=== PATIENT | female | born 1990 | race Caucasian/White ===

== ENCOUNTER 2017-11-13 14:04 | Emergency (ER) | payer BC, OTHER ==
[2016-05-06 08:53] VITALS: Wt 61.2 kg
[~2017-11-13 14:04] MED LIST: DOCU240C67 PO; FERR-53 PO; IBUP600T22 PO; Lanolin TP; NITR-105 PO; ONDA4TAB PO; PREN-75 PO; PROM25SU8; [UNRECOGNIZED DRUG - CODE] PO; [UNRECOGNIZED DRUG - CODE] PO
--- NOTE | 2017-11-13 14:08 | ER Report ---
History and Physical Time Seen By MD: 14:07 (NELL AGUILAR MD) HPI/ROS CHIEF COMPLAINT: Dehydration HISTORY OF PRESENT ILLNESS: She is a 27-year-old female who is a at approximately 10-11 weeks but hasnot yet had first trimester U/S. patient has a prior history of hyperemesis with a prior . She is stating that over the past few week she's been unable to keep anything down and this has worsened over the last 24-48 hours. She denies any abdominal pain. She denies dysuria she denies any vaginal bleeding or cramping. She has been taking Zofran, Reglan and Phenergan without relief in her symptoms. Patient last tried to eat some watermelon approximately 30 minutes prior to arrival. But she wasn't able to keep that down. REVIEW OF SYSTEMS: Respiratory: No cough, no dyspnea. Cardiovascular: No chest pain, no palpitations. Gastrointestinal: Hyperemesis, no abdominal pain Musculoskeletal: No back pain. : No dysuria, no vaginal bleeding (NELL AGUILAR MD) Allergies: Coded Allergies: No Known Drug Allergies (Unverified , 11/13/17) Home Meds Active Scripts Cephalexin 500 Mg Tab (KEFLEX 500 MG TAB) 500 Mg Tablet, 500 MG PO BID, #28 TAB Prov:KRISS MARTINO V DO 11/13/17 Vit#96/Ferrous Fum/Fa ( TABLET) 1 Each Tablet, 1 EACH PO DAILY for 90 Days, TAB Prov:FLAVIA COLÓN MD 05/07/16 [Lanolin] 7 GM OINT No Conflict Check, 0 GM TP PRN Y for DISCOMFORT FOR NURSING MOTHERS, TUBE Prov:FLAVIA COLÓN MD 05/07/16 Ibuprofen (IBUPROFEN) 600 Mg Tablet, 600 MG PO Q6H Y for PAIN for 10 Days, TAB Prov:FLAVIA COLÓN MD 05/07/16 Ferrous Sulfate (FERROUS SULFATE) 325 Mg Tablet, 325 MG PO DAILY for 30 Days, TAB 2 Refills Prov:LFAVIA COLÓN MD 05/07/16 Docusate Calcium (DOCUSATE CALCIUM) 240 Mg Capsule, 240 MG PO BID for 10 Days, CAPSULE Prov:FLAVIA COLÓN MD 05/07/16 Nitrofurantoin Monohyd/M-Cryst (MACROBID 100 MG CAPSULE) 100 Mg Capsule, 100 MG PO BID, #14 CAPSULE 0 Refills Prov:DAVID BUCK MD 04/14/16 Past Medical/Surgical History History of hyperemesis (NELL AGUILAR MD) Hx Smoking: No Smoking Status: Never Smoker Exposure to Second Hand Smoke?: No Hx Substance Use Disorder: No (NELL AGUILAR MD) Constitutional Vital Sign - Last 24 Hours 11/13/17 11/13/17 11/13/17 11/13/17 14:10 14:12 14:19 14:30 Temp 98.7 Pulse 76 81 Resp 16 B/P (MAP) 123/81 123/81 (95) 113/71 (85) Pulse Ox 98 96 O2 Delivery Room Air 11/13/17 11/13/17 11/13/17 11/13/17 14:34 14:39 14:44 14:49 Pulse 78 76 81 79 Pulse Ox 97 98 98 98 11/13/17 11/13/17 11/13/17 11/13/17 14:54 14:59 15:00 15:04 Pulse 72 79 78 B/P (MAP) 107/72 (84) Pulse Ox 98 98 99 11/13/17 11/13/17 11/13/17 15:09 15:14 15:19 Pulse 76 73 80 Pulse Ox 99 98 98 Intake and Output 11/13/17 11/13/17 11/14/17 15:00 23:00 07:00 Intake Total 1000 ml Balance 1000 ml (LAURORA,KRISS V DO) Physical Exam General Appearance: The patient is alert, has no immediate need for airway protection and no signs of toxicity. Eyes: Pupils equal and round no pallor or injection. ENT, Mouth: Mucous membranes are dry with tacky saliva Respiratory: There are no retractions, lungs are clear to auscultation. Cardiovascular: Regular rate and rhythm. Gastrointestinal: Abdomen is soft and non tender, no masses, bowel sounds normal. Neurological: Awake alert oriented Skin: Warm and dry, no rashes. Musculoskeletal: Neck is supple non tender. Extremities are nontender, nonswollen and have full range of motion. (NELL AGUILAR MD) Medical Decision Making Data Points Result Diagram: 11/13/17 1433 11/13/17 1433 Laboratory Hematology Test 11/13/17 14:10 3/24/18 14:33 Urine Color Yellow Urine Clarity Cloudy Urine pH 5.0 pH (4.8-9.5) Urine Specific [place] 1.028 Urine Protein Negative mg/dL (NEGATIVE) Urine Glucose (UA) Negative mg/dL (NEGATIVE) Urine Ketones 20 mg/dL (NEGATIVE) Urine Blood Negative (NEGATIVE) Urine Nitrite Negative (NEGATIVE) Urine Bilirubin Negative (NEGATIVE) Urine Urobilinogen Negative mg/dL (0.2-1.9) Urine Leukocyte Esterase Trace (NEGATIVE) Urine RBC 2 /HPF (0-2/HPF) Urine WBC 9 /HPF (0-5/HPF) Urine Squamous Epithelial Cells Many /LPF (</=FEW) Urine Bacteria Few /HPF (NONE-FEW) Urine Mucus Few /HPF (NONE-FEW) Red Blood Count 5.11 M/uL (4.17-5.56) Mean Corpuscular Volume 82.9 fL (80.0-96.0) Mean Corpuscular Hemoglobin 28.5 pg (26.0-33.0) Mean Corpuscular Hemoglobin Concent 34.4 g/dL (32.0-36.0) Red Cell Distribution Width 13.1 % (11.5-14.5) Mean Platelet Volume 9.7 fL (7.2-11.1) Neutrophils (%) (Auto) 69.9 % (39.4-72.5) Lymphocytes (%) (Auto) 22.0 % (17.6-49.6) Monocytes (%) (Auto) 6.5 % (4.1-12.4) Eosinophils (%) (Auto) 0.6 % (0.4-6.7) Basophils (%) (Auto) 1.0 % (0.3-1.4) Nucleated RBC Relative Count (auto) 0.0 /100WBC Neutrophils # (Auto) 4.7 K/uL (2.0-7.4) Lymphocytes # (Auto) 1.5 K/uL (1.3-3.6) Monocytes # (Auto) 0.4 K/uL (0.3-1.0) Eosinophils # (Auto) 0.0 K/uL (0.0-0.5) Basophils # (Auto) 0.1 K/uL (0.0-0.1) Nucleated RBC Absolute Count (auto) 0.00 K/uL Sodium Level 139 mmol/L (137-145) Potassium Level 3.7 mmol/L (3.5-5.0) Chloride Level 105 mmol/L (98-107) Carbon Dioxide Level 20 mmol/L (22-31) Blood Urea Nitrogen 8 mg/dl (7-18) Creatinine 0.60 mg/dl (0.52-1.04) Glomerular Filtration Rate Calc > 60.0 Random Glucose 79 mg/dl (75-110) Calcium Level 9.6 mg/dl (8.4-10.2) Total Bilirubin 0.6 mg/dl (0.2-1.3) Aspartate Amino Transf (AST/SGOT) 14 U/L (0-35) Alanine Aminotransferase (ALT/SGPT) 30 U/L (0-56) Alkaline Phosphatase 38 U/L (0-126) Total Protein 7.8 gm/dl (6.3-8.2) Albumin 4.7 g/dl (3.5-5.0) Lipase 120 U/L (23-300) Chemistry Test 11/13/17 14:10 11/13/17 14:33 Urine Color Yellow Urine Clarity Cloudy Urine pH 5.0 pH (4.8-9.5) Urine Specific [place] 1.028 Urine Protein Negative mg/dL (NEGATIVE) Urine Glucose (UA) Negative mg/dL (NEGATIVE) Urine Ketones 20 mg/dL (NEGATIVE) Urine Blood Negative (NEGATIVE) Urine Nitrite Negative (NEGATIVE) Urine Bilirubin Negative (NEGATIVE) Urine Urobilinogen Negative mg/dL (0.2-1.9) Urine Leukocyte Esterase Trace (NEGATIVE) Urine RBC 2 /HPF (0-2/HPF) Urine WBC 9 /HPF (0-5/HPF) Urine Squamous Epithelial Cells Many /LPF (</=FEW) Urine Bacteria Few /HPF (NONE-FEW) Urine Mucus Few /HPF (NONE-FEW) White Blood Count 6.7 k/uL (4.5-11.0) Red Blood Count 5.11 M/uL (4.17-5.56) Hemoglobin 14.6 g/dL (12.0-16.0) Hematocrit 42.4 % (34.0-47.0) Mean Corpuscular Volume 82.9 fL (80.0-96.0) Mean Corpuscular Hemoglobin 28.5 pg (26.0-33.0) Mean Corpuscular Hemoglobin Concent 34.4 g/dL (32.0-36.0) Red Cell Distribution Width 13.1 % (11.5-14.5) Platelet Count 166 K/uL (150-450) Mean Platelet Volume 9.7 fL (7.2-11.1) Neutrophils (%) (Auto) 69.9 % (39.4-72.5) Lymphocytes (%) (Auto) 22.0 % (17.6-49.6) Monocytes (%) (Auto) 6.5 % (4.1-12.4) Eosinophils (%) (Auto) 0.6 % (0.4-6.7) Basophils (%) (Auto) 1.0 % (0.3-1.4) Nucleated RBC Relative Count (auto) 0.0 /100WBC Neutrophils # (Auto) 4.7 K/uL (2.0-7.4) Lymphocytes # (Auto) 1.5 K/uL (1.3-3.6) Monocytes # (Auto) 0.4 K/uL (0.3-1.0) Eosinophils # (Auto) 0.0 K/uL (0.0-0.5) Basophils # (Auto) 0.1 K/uL (0.0-0.1) Nucleated RBC Absolute Count (auto) 0.00 K/uL Glomerular Filtration Rate Calc > 60.0 Calcium Level 9.6 mg/dl (8.4-10.2) Total Bilirubin 0.6 mg/dl (0.2-1.3) Aspartate Amino Transf (AST/SGOT) 14 U/L (0-35) Alanine Aminotransferase (ALT/SGPT) 30 U/L (0-56) Alkaline Phosphatase 38 U/L (0-126) Total Protein 7.8 gm/dl (6.3-8.2) Albumin 4.7 g/dl (3.5-5.0) Lipase 120 U/L (23-300) Urinalysis Test 11/13/17 14:10 Urine Color Yellow Urine Clarity Cloudy Urine pH 5.0 pH (4.8-9.5) Urine Specific [place] 1.028 Urine Protein Negative mg/dL (NEGATIVE) Urine Glucose (UA) Negative mg/dL (NEGATIVE) Urine Ketones 20 mg/dL (NEGATIVE) Urine Blood Negative (NEGATIVE) Urine Nitrite Negative (NEGATIVE) Urine Bilirubin Negative (NEGATIVE) Urine Urobilinogen Negative mg/dL (0.2-1.9) Urine Leukocyte Esterase Trace (NEGATIVE) Urine RBC 2 /HPF (0-2/HPF) Urine WBC 9 /HPF (0-5/HPF) Urine Squamous Epithelial Cells Many /LPF (</=FEW) Urine Bacteria Few /HPF (NONE-FEW) Urine Mucus Few /HPF (NONE-FEW) (KRISS MARTINO DO) ED Course/Re-evaluation ED Course 11/13/2017 2:33:38 pm bedside ultrasound shows IUP with heart rate of 130 bpm by pulse wave. Plan at this time is to perform IV hydration we'll check CBC CMP urinalysis. We' ll also give IV Reglan. Decision to Disposition Date: Nov 13, 2017 Decision to Disposition Time: 18:00 (NELL AGUILAR MD) Clinical Indication for ER IV: Hydration, IV Access ED Course 11/13/2017 3:28:08 pm Signed out to me pending labs. Pts stable. no vomiting in ED. Will give patient a second liter NS in ED. Sent urine for culture. will tx due to pt is 11/13/2017 3:54:42 pm second liter is completed. Pt did not vomit in ed. Held down her keflex. will d/c Decision to Disposition Date: Nov 13, 2017 Decision to Disposition Time: 15:55 (KRISS MARTINO DO) Depart Departure Latest Vital Signs Vital Signs Date Time Temp Pulse Resp B/P (MAP) Pulse Ox O2 Delivery O2 Flow Rate FiO2 11/13/17 15:19 80 98 11/13/17 15:00 107/72 (84) 11/13/17 14:10 98.7 16 Room Air (KRISS MARTINO DO) Impression: Primary Impression: Hyperemesis gravidarum Additional Impression: UTI (urinary tract infection) Condition: Improved Disposition: HOME OR SELF-CARE New Scripts Cephalexin 500 Mg Tab (KEFLEX 500 MG TAB) 500 Mg Tablet 500 MG PO BID, #28 TAB Prov: KRISS MARTINO DO 11/13/17 Patient Instructions: Nausea and Vomiting in (ED), Urinary Tract Infection in (ED) Additional Instructions: Follow up with your data analytics chief scientist. Keep your appointment for your Ultrasound. Keflex twice a day for Urine infection Return as needed. Problem Qualifiers Additional Impression: UTI (urinary tract infection) Urinary tract infection type: site unspecified Hematuria presence: without hematuria Qualified Codes: N39.0 - Urinary tract infection, site not specified NELL AGUILAR MD Nov 13, 2017 14:08 KRISS MARTINO DO Nov 13, 2017 15:30
[2017-11-13] MEDS ORDERED: LR(*) 1000 ML BAG 1,000 ML IV ONE (14:23)
[2017-11-13] MEDS ORDERED: METOCLOPRAMIDE 10 MG/2 ML SDV IVP ONE (14:30)
[2017-11-13 15:02] LABS: PLATELET COUNT, AUTOMATED 166 K/uL (150-450)
[2017-11-13] MEDS ORDERED: NS(*) 0.9% 1000 ML BAG 1,000 ML IV ONE (15:25)
[2017-11-13] MEDS ORDERED: CEPHALEXIN MONO 500 MG CAP PO ONE (15:25)
[2017-11-13 15:30] VITALS: BP 113/68
[2017-11-13] MEDS ORDERED: CEPH500T7 PO (15:56)
== END 2017-11-13 15:58 | disposition home or self-care (01) ==
LOC: ER 14:15
DX: O21.0 Mild hyperemesis gravidarum (principal); O23.41 Unspecified infection of urinary tract in pregnancy, first trimester; Z3A.10 10 weeks gestation of pregnancy; Z37.9 Outcome of delivery, unspecified
CPT/HCPCS: 81001; 83690; 85025; 87088; 96361; 96374; 99284; J2765; J7030; J7120; 82040; 82247; 82310; 82374; 82435; 82565; 82947; 84075; 84132; 84155; 84295; 84450; 84460; 84520

== ENCOUNTER 2017-11-29 10:10 | Observation (INO) | payer BC ==
[2016-05-06 08:53] VITALS: Ht 152.4 cm; Wt 57.2 kg
[~2017-11-29] VITALS: Ht 152.4 cm; Wt 57.2 kg
[~2017-11-29 10:10] MED LIST changes: +CEPH500T7 PO
--- NOTE | 2017-11-29 10:13 | ER Report ---
History and Physical Time Seen By MD: 10:12 HPI/ROS CHIEF COMPLAINT: vomiting HISTORY OF PRESENT ILLNESS: Patient is a AB2 who is approximately 10 weeks gestation by last menstrual period who presents to emergency department for persistent vomiting and stating that she is unable to keep anything down since Wednesday evening. She is gone through multiple antiemetics including Zofran and Reglan and Phenergan without any improvement. She was actually seen in the emergency department at the end of October for similar symptoms received IV fluids and was able to be discharged home. She has an OB appointment tomorrow for an ultrasound. She reports mild abdominal cramping but she denies any vaginal bleeding or leakage of fluid. She reports she's had similar episodes with her last in terms of nausea but not as severe. REVIEW OF SYSTEMS: Constitutional: No fever, no chills. Eyes: No discharge. ENT: No sore throat. Cardiovascular: No chest pain, no palpitations. Respiratory: No cough, no shortness of breath. Gastrointestinal: Abdominal cramping, severe nausea, vomiting. Genitourinary: No hematuria. No dysuria, no vaginal bleeding no vaginal discharge Musculoskeletal: No back pain. Skin: No rashes. Neurological: No headache. Allergies: Coded Allergies: No Known Drug Allergies (Unverified , 11/13/17) Home Meds Reported Medications Metoclopramide Hcl (REGLAN) 5 Mg Tablet, 5 MG PO 11/29/17 Promethazine HCl (Phenergan) 25 Mg Supp.rect 11/29/17 Ondansetron Hcl (ZOFRAN) 4 Mg Tablet, 4 MG PO Q12H, TAB 11/29/17 Famotidine (PEPCID) 20 Mg Tablet, 20 MG PO QDAY, #10 TAB 11/29/17 Discontinued Scripts Cephalexin 500 Mg Tab (KEFLEX 500 MG TAB) 500 Mg Tablet, 500 MG PO BID, #28 TAB Prov:KRISS MARTINO V DO 11/13/17 Vit#96/Ferrous Fum/Fa ( TABLET) 1 Each Tablet, 1 EACH PO DAILY for 90 Days, TAB Prov:FLAVIA COLÓN MD 05/07/16 [Lanolin] 7 GM OINT No Conflict Check, 0 GM TP PRN Y for DISCOMFORT FOR NURSING MOTHERS, TUBE Prov:FLAVIA COLÓN MD 05/07/16 Ibuprofen (IBUPROFEN) 600 Mg Tablet, 600 MG PO Q6H Y for PAIN for 10 Days, TAB Prov:FLAVIA COLÓN MD 05/07/16 Ferrous Sulfate (FERROUS SULFATE) 325 Mg Tablet, 325 MG PO DAILY for 30 Days, TAB 2 Refills Prov:FLAVIA COLÓN MD 05/07/16 Docusate Calcium (DOCUSATE CALCIUM) 240 Mg Capsule, 240 MG PO BID for 10 Days, CAPSULE Prov:FLAVIA COLÓN MD 05/07/16 Nitrofurantoin Monohyd/M-Cryst (MACROBID 100 MG CAPSULE) 100 Mg Capsule, 100 MG PO BID, #14 CAPSULE 0 Refills Prov:DAVID BUCK MD 04/14/16 Past Medical/Surgical History History of hyperemesis Hx Smoking: No Smoking Status: Never Smoker Exposure to Second Hand Smoke?: No Hx Substance Use Disorder: No Constitutional Vital Sign - Last 24 Hours 11/29/17 11/29/17 11/29/17 11/29/17 10:10 10:16 10:16 10:25 Temp 98.5 Pulse ??? 77 81 Resp 14 B/P (MAP) 131/95 131/95 (107) Pulse Ox 97 98 O2 Delivery Room Air 11/29/17 11/29/17 11/29/17 11/29/17 10:30 10:40 10:55 11:00 Pulse 87 83 B/P (MAP) 127/85 (99) 134/75 (94) Pulse Ox 98 98 11/29/17 11/29/17 11/29/17 11/29/17 11:10 11:25 11:30 11:40 Pulse 79 86 79 B/P (MAP) 116/68 (84) Pulse Ox 99 97 93 11/29/17 11/29/17 11/29/17 11/29/17 11:55 12:00 12:05 12:20 Pulse 82 81 86 B/P (MAP) 126/82 (97) Pulse Ox 99 99 99 11/29/17 11/29/17 11/29/17 11/29/17 12:30 12:35 12:50 13:00 Pulse 87 94 B/P (MAP) 119/69 (86) 122/84 (97) Pulse Ox 98 99 11/29/17 13:05 Pulse 91 Pulse Ox 99 Physical Exam General/Constitutional: Patient is awake, alert, nontoxic and in no acute respiratory distress. Head: Normocephalic and atraumatic. Eyes: Conjunctival clear, Pupils are equal and reactive to light. Extraocular muscles are intact and symmetrical. Sclera are clear and anicteric. Ears:External canals are clear. Tympanic membranes are clear with normal landmarks and light reflex. Nares: No rhinorrhea or bleeding. Turbinates are pink and moist. Oropharyngeal: Mucous membranes are moist. There is no pharyngeal erythema or exudate. There are no palatal petechiae. Uvula is midline and symmetrical. Neck: Supple, no adenopathy. Cardiovascular: Heart is regular rate and rhythm without audible murmurs, rubs or gallops. Pulmonary: Lungs are clear to auscultation bilaterally. There are no wheezes, rales, or rhonchi. Chest rise is symmetrical Abdomen: Soft, nontender, no guarding or peritoneal signs. Extremities: No gross deformities, No peripheral cyanosis. Able to move all 4 extremities. Neuro: Alert and oriented X3, Skin: No rashes, skin is warm dry and well perfused. Medical Decision Making Data Points Result Diagram: 11/29/17 1052 11/29/17 1052 Laboratory Hematology Test 11/29/17 10:15 11/29/17 10:52 Urine Color Glo Urine Clarity Cloudy Urine pH 5.0 pH (4.8-9.5) Urine Specific [place] 1.032 Urine Protein 30 mg/dL (NEGATIVE) Urine Glucose (UA) Negative mg/dL (NEGATIVE) Urine Ketones 80 mg/dL (NEGATIVE) Urine Blood Negative (NEGATIVE) Urine Nitrite Negative (NEGATIVE) Urine Bilirubin Negative (NEGATIVE) Urine Urobilinogen 4.0 mg/dL (0.2-1.9) Urine Leukocyte Esterase Trace (NEGATIVE) Urine RBC None /HPF (0-2/HPF) Urine WBC 11 /HPF (0-5/HPF) Urine Squamous Epithelial Cells Many /LPF (</=FEW) Urine Bacteria Negative /HPF (NONE-FEW) Urine Mucus Moderate /HPF (NONE-FEW) Red Blood Count 4.85 M/uL (4.17-5.56) Mean Corpuscular Volume 82.8 fL (80.0-96.0) Mean Corpuscular Hemoglobin 29.1 pg (26.0-33.0) Mean Corpuscular Hemoglobin Concent 35.2 g/dL (32.0-36.0) Red Cell Distribution Width 13.0 % (11.5-14.5) Mean Platelet Volume 9.4 fL (7.2-11.1) Neutrophils (%) (Auto) 73.0 % (39.4-72.5) Lymphocytes (%) (Auto) 20.1 % (17.6-49.6) Monocytes (%) (Auto) 5.9 % (4.1-12.4) Eosinophils (%) (Auto) 0.3 % (0.4-6.7) Basophils (%) (Auto) 0.7 % (0.3-1.4) Nucleated RBC Relative Count (auto) 0.1 /100WBC Neutrophils # (Auto) 4.1 K/uL (2.0-7.4) Lymphocytes # (Auto) 1.1 K/uL (1.3-3.6) Monocytes # (Auto) 0.3 K/uL (0.3-1.0) Eosinophils # (Auto) 0.0 K/uL (0.0-0.5) Basophils # (Auto) 0.0 K/uL (0.0-0.1) Nucleated RBC Absolute Count (auto) 0.01 K/uL Sodium Level 139 mmol/L (137-145) Potassium Level 3.4 mmol/L (3.5-5.0) Chloride Level 103 mmol/L (98-107) Carbon Dioxide Level 19 mmol/L (22-31) Blood Urea Nitrogen 8 mg/dl (7-18) Creatinine 0.50 mg/dl (0.52-1.04) Glomerular Filtration Rate Calc > 60.0 Random Glucose 84 mg/dl (75-110) Calcium Level 9.5 mg/dl (8.4-10.2) Total Bilirubin 0.6 mg/dl (0.2-1.3) Aspartate Amino Transf (AST/SGOT) 14 U/L (0-35) Alanine Aminotransferase (ALT/SGPT) 17 U/L (0-56) Alkaline Phosphatase 35 U/L (0-126) Total Protein 7.8 gm/dl (6.3-8.2) Albumin 4.6 g/dl (3.5-5.0) Lipase 84 U/L (23-300) Helicobacter pylori IgG Antibody Negative (NEGATIVE) Chemistry Test 11/29/17 10:15 11/29/17 10:52 Urine Color Glo Urine Clarity Cloudy Urine pH 5.0 pH (4.8-9.5) Urine Specific [place] 1.032 Urine Protein 30 mg/dL (NEGATIVE) Urine Glucose (UA) Negative mg/dL (NEGATIVE) Urine Ketones 80 mg/dL (NEGATIVE) Urine Blood Negative (NEGATIVE) Urine Nitrite Negative (NEGATIVE) Urine Bilirubin Negative (NEGATIVE) Urine Urobilinogen 4.0 mg/dL (0.2-1.9) Urine Leukocyte Esterase Trace (NEGATIVE) Urine RBC None /HPF (0-2/HPF) Urine WBC 11 /HPF (0-5/HPF) Urine Squamous Epithelial Cells Many /LPF (</=FEW) Urine Bacteria Negative /HPF (NONE-FEW) Urine Mucus Moderate /HPF (NONE-FEW) White Blood Count 5.7 k/uL (4.5-11.0) Red Blood Count 4.85 M/uL (4.17-5.56) Hemoglobin 14.1 g/dL (12.0-16.0) Hematocrit 40.1 % (34.0-47.0) Mean Corpuscular Volume 82.8 fL (80.0-96.0) Mean Corpuscular Hemoglobin 29.1 pg (26.0-33.0) Mean Corpuscular Hemoglobin Concent 35.2 g/dL (32.0-36.0) Red Cell Distribution Width 13.0 % (11.5-14.5) Platelet Count 169 K/uL (150-450) Mean Platelet Volume 9.4 fL (7.2-11.1) Neutrophils (%) (Auto) 73.0 % (39.4-72.5) Lymphocytes (%) (Auto) 20.1 % (17.6-49.6) Monocytes (%) (Auto) 5.9 % (4.1-12.4) Eosinophils (%) (Auto) 0.3 % (0.4-6.7) Basophils (%) (Auto) 0.7 % (0.3-1.4) Nucleated RBC Relative Count (auto) 0.1 /100WBC Neutrophils # (Auto) 4.1 K/uL (2.0-7.4) Lymphocytes # (Auto) 1.1 K/uL (1.3-3.6) Monocytes # (Auto) 0.3 K/uL (0.3-1.0) Eosinophils # (Auto) 0.0 K/uL (0.0-0.5) Basophils # (Auto) 0.0 K/uL (0.0-0.1) Nucleated RBC Absolute Count (auto) 0.01 K/uL Glomerular Filtration Rate Calc > 60.0 Calcium Level 9.5 mg/dl (8.4-10.2) Total Bilirubin 0.6 mg/dl (0.2-1.3) Aspartate Amino Transf (AST/SGOT) 14 U/L (0-35) Alanine Aminotransferase (ALT/SGPT) 17 U/L (0-56) Alkaline Phosphatase 35 U/L (0-126) Total Protein 7.8 gm/dl (6.3-8.2) Albumin 4.6 g/dl (3.5-5.0) Lipase 84 U/L (23-300) Helicobacter pylori IgG Antibody Negative (NEGATIVE) Urinalysis Test 11/29/17 10:15 Urine Color Glo Urine Clarity Cloudy Urine pH 5.0 pH (4.8-9.5) Urine Specific [place] 1.032 Urine Protein 30 mg/dL (NEGATIVE) Urine Glucose (UA) Negative mg/dL (NEGATIVE) Urine Ketones 80 mg/dL (NEGATIVE) Urine Blood Negative (NEGATIVE) Urine Nitrite Negative (NEGATIVE) Urine Bilirubin Negative (NEGATIVE) Urine Urobilinogen 4.0 mg/dL (0.2-1.9) Urine Leukocyte Esterase Trace (NEGATIVE) Urine RBC None /HPF (0-2/HPF) Urine WBC 11 /HPF (0-5/HPF) Urine Squamous Epithelial Cells Many /LPF (</=FEW) Urine Bacteria Negative /HPF (NONE-FEW) Urine Mucus Moderate /HPF (NONE-FEW) ED Course/Re-evaluation Clinical Indication for ER IV: Hydration, IV Access ED Course 11/29/2017 10:39:37 am bedside ultrasound was performed which gave a heart rate of 171 bpm. Patient has an intrauterine crown-rump length measures to approximately 9 weeks estimated gestational age. At this time will be to place an IV we will give IV fluid bolus check urine and CBC CMP. We will also give antiemetics. Re-evaluation 11/29/2017 1:00:36 pm patient with persistent vomiting with any by mouth challenge despite antiemetics and IV fluids. Case was discussed with Dr. Springer who is on for EDUCATION PROFESSIONAL. He has agreed to accept the patient for admission for hyperemesis gravidarum at this time. Decision to Disposition Date: Nov 29, 2017 Decision to Disposition Time: 13:19 Depart Departure Latest Vital Signs Vital Signs Date Time Temp Pulse Resp B/P (MAP) Pulse Ox O2 Delivery O2 Flow Rate FiO2 11/29/17 13:05 91 99 11/29/17 13:00 122/84 (97) 11/29/17 10:16 98.5 14 Room Air Impression: Primary Impression: Hyperemesis gravidarum Condition: Improved Disposition: Admitted from ER (To Dr Springer) NELL AGUILAR MD Nov 29, 2017 10:13
[2017-11-29] MEDS ORDERED: FAMO20TA28 PO (10:22)
[2017-11-29] MEDS ORDERED: ONDA4TAB97 PO (10:23)
[2017-11-29] MEDS ORDERED: METO-733 PO (10:23)
[2017-11-29] MEDS ORDERED: PROM25SU8 (10:23)
[2017-11-29] MEDS ORDERED: LR(*) 1000 ML BAG 1,000 ML IV ONE ×2 (10:41→11:34)
[2017-11-29] MEDS ORDERED: FAMOTIDINE(*) 20MG/50ML PREMIX 50 ML IVPB ONE (10:41)
[2017-11-29] MEDS ORDERED: METOCLOPRAMIDE 10 MG/2 ML SDV IVP ONE (10:45)
[2017-11-29 11:05] LABS: PLATELET COUNT, AUTOMATED 169 K/uL (150-450)
[2017-11-29] MEDS ORDERED: ONDANSETRON 4 MG/2 ML VIAL IVP ONE (12:45)
[2017-11-29 14:00] VITALS: BP 126/64
[2017-11-29] MEDS ORDERED: 1: MULTIVITAMINS(*) 10 ML VIAL 10 ML, FOLIC ACID(*) 50 MG/10 ML INJ 1 MG, THIAMINE HCL( IV SCH ×2 (14:00)
[2017-11-29] MEDS: 1: MULTIVITAMINS(*) 10 ML VIAL 10 ML, FOLIC ACID(*) 50 MG/10 ML INJ 1 MG, THIAMINE HCL( IV SCH ×2 (14:25→22:22)
--- NOTE | 2017-11-29 18:47 | History & Physical ---
History of Present Illness Age of Patient: 27 : 5 Para or TPAL: 2 Estimated Gestational Age: 12 Chief Complaint hyperemesis History of Present Illness Presents through ER with nausea and vomiting at 10 weeks in current . She has been struggling with nausea this and already has been to ER several times. She has anti-emetics at home including Zofran, Phenergan and Reglan and these have failed her tonight. She is being admitted for control of hyperemesis and rehydration. History Obstetrical History: Prior vaginal deliveries x 2 Allergies: Coded Allergies: No Known Drug Allergies (Unverified , 11/13/17) Social History: No T/E/D Family History: FH: cancer MOTHER FH: diabetes mellitus MOTHER Med Rec Home Meds Reported Medications Metoclopramide Hcl (REGLAN) 5 Mg Tablet, 5 MG PO 11/29/17 Promethazine HCl (Phenergan) 25 Mg Supp.rect 11/29/17 Ondansetron Hcl (ZOFRAN) 4 Mg Tablet, 4 MG PO Q12H, TAB 11/29/17 Famotidine (PEPCID) 20 Mg Tablet, 20 MG PO QDAY, #10 TAB 11/29/17 Discontinued Scripts Cephalexin 500 Mg Tab (KEFLEX 500 MG TAB) 500 Mg Tablet, 500 MG PO BID, #28 TAB Prov:KRISS MARTINO V DO 11/13/17 Vit#96/Ferrous Fum/Fa ( TABLET) 1 Each Tablet, 1 EACH PO DAILY for 90 Days, TAB Prov:FLAVIA COLÓN MD 05/07/16 [Lanolin] 7 GM OINT No Conflict Check, 0 GM TP PRN Y for DISCOMFORT FOR NURSING MOTHERS, TUBE Prov:FLAVIA COLÓN MD 05/07/16 Ibuprofen (IBUPROFEN) 600 Mg Tablet, 600 MG PO Q6H Y for PAIN for 10 Days, TAB Prov:FLAVIA COLÓN MD 05/07/16 Ferrous Sulfate (FERROUS SULFATE) 325 Mg Tablet, 325 MG PO DAILY for 30 Days, TAB 2 Refills Prov:FLAVIA COLÓN MD 05/07/16 Docusate Calcium (DOCUSATE CALCIUM) 240 Mg Capsule, 240 MG PO BID for 10 Days, CAPSULE Prov:FLAVIA COLÓN MD 05/07/16 Nitrofurantoin Monohyd/M-Cryst (MACROBID 100 MG CAPSULE) 100 Mg Capsule, 100 MG PO BID, #14 CAPSULE 0 Refills Prov:DAVID BUCK MD 04/14/16 Review of Systems All Systems Reviewed/Normal: Yes, Except as Noted Gastrointestinal: Nausea, Vomiting Exam General Exam Vital Signs Vital Signs Date Time Temp Pulse Resp B/P (MAP) Pulse Ox O2 Delivery O2 Flow Rate FiO2 11/29/17 14:00 98.2 83 18 126/64 (84) 97 Room Air General Apperance: Alert/Awake/No Acute Distress Neuro: No Gross deficits Cardiovascular: Regular Rate and Rhythm Respiratory: No Respiratory Distress Abdomen: Soft, Non-Tender, Non-Distended Integumentary: Skin Intact without Lesions or Rash Psychological: Alert & Oriented X3, Appropriate Mood & Affect Medical Decision Making Data Points Result Diagram: 11/29/17 1052 11/29/17 1052 Hematology Test 11/29/17 10:15 11/29/17 10:52 Urine Color Glo Urine Clarity Cloudy Urine pH 5.0 pH (4.8-9.5) Urine Specific [place] 1.032 Urine Protein 30 mg/dL (NEGATIVE) Urine Glucose (UA) Negative mg/dL (NEGATIVE) Urine Ketones 80 mg/dL (NEGATIVE) Urine Blood Negative (NEGATIVE) Urine Nitrite Negative (NEGATIVE) Urine Bilirubin Negative (NEGATIVE) Urine Urobilinogen 4.0 mg/dL (0.2-1.9) Urine Leukocyte Esterase Trace (NEGATIVE) Urine RBC None /HPF (0-2/HPF) Urine WBC 11 /HPF (0-5/HPF) Urine Squamous Epithelial Cells Many /LPF (</=FEW) Urine Bacteria Negative /HPF (NONE-FEW) Urine Mucus Moderate /HPF (NONE-FEW) Red Blood Count 4.85 M/uL (4.17-5.56) Mean Corpuscular Volume 82.8 fL (80.0-96.0) Mean Corpuscular Hemoglobin 29.1 pg (26.0-33.0) Mean Corpuscular Hemoglobin Concent 35.2 g/dL (32.0-36.0) Red Cell Distribution Width 13.0 % (11.5-14.5) Mean Platelet Volume 9.4 fL (7.2-11.1) Neutrophils (%) (Auto) 73.0 % (39.4-72.5) Lymphocytes (%) (Auto) 20.1 % (17.6-49.6) Monocytes (%) (Auto) 5.9 % (4.1-12.4) Eosinophils (%) (Auto) 0.3 % (0.4-6.7) Basophils (%) (Auto) 0.7 % (0.3-1.4) Nucleated RBC Relative Count (auto) 0.1 /100WBC Neutrophils # (Auto) 4.1 K/uL (2.0-7.4) Lymphocytes # (Auto) 1.1 K/uL (1.3-3.6) Monocytes # (Auto) 0.3 K/uL (0.3-1.0) Eosinophils # (Auto) 0.0 K/uL (0.0-0.5) Basophils # (Auto) 0.0 K/uL (0.0-0.1) Nucleated RBC Absolute Count (auto) 0.01 K/uL Sodium Level 139 mmol/L (137-145) Potassium Level 3.4 mmol/L (3.5-5.0) Chloride Level 103 mmol/L (98-107) Carbon Dioxide Level 19 mmol/L (22-31) Blood Urea Nitrogen 8 mg/dl (7-18) Creatinine 0.50 mg/dl (0.52-1.04) Glomerular Filtration Rate Calc > 60.0 Random Glucose 84 mg/dl (75-110) Calcium Level 9.5 mg/dl (8.4-10.2) Total Bilirubin 0.6 mg/dl (0.2-1.3) Aspartate Amino Transf (AST/SGOT) 14 U/L (0-35) Alanine Aminotransferase (ALT/SGPT) 17 U/L (0-56) Alkaline Phosphatase 35 U/L (0-126) Total Protein 7.8 gm/dl (6.3-8.2) Albumin 4.6 g/dl (3.5-5.0) Lipase 84 U/L (23-300) Helicobacter pylori IgG Antibody Negative (NEGATIVE) Chemistry Test 11/29/17 10:15 11/29/17 10:52 Urine Color Glo Urine Clarity Cloudy Urine pH 5.0 pH (4.8-9.5) Urine Specific [place] 1.032 Urine Protein 30 mg/dL (NEGATIVE) Urine Glucose (UA) Negative mg/dL (NEGATIVE) Urine Ketones 80 mg/dL (NEGATIVE) Urine Blood Negative (NEGATIVE) Urine Nitrite Negative (NEGATIVE) Urine Bilirubin Negative (NEGATIVE) Urine Urobilinogen 4.0 mg/dL (0.2-1.9) Urine Leukocyte Esterase Trace (NEGATIVE) Urine RBC None /HPF (0-2/HPF) Urine WBC 11 /HPF (0-5/HPF) Urine Squamous Epithelial Cells Many /LPF (</=FEW) Urine Bacteria Negative /HPF (NONE-FEW) Urine Mucus Moderate /HPF (NONE-FEW) White Blood Count 5.7 k/uL (4.5-11.0) Red Blood Count 4.85 M/uL (4.17-5.56) Hemoglobin 14.1 g/dL (12.0-16.0) Hematocrit 40.1 % (34.0-47.0) Mean Corpuscular Volume 82.8 fL (80.0-96.0) Mean Corpuscular Hemoglobin 29.1 pg (26.0-33.0) Mean Corpuscular Hemoglobin Concent 35.2 g/dL (32.0-36.0) Red Cell Distribution Width 13.0 % (11.5-14.5) Platelet Count 169 K/uL (150-450) Mean Platelet Volume 9.4 fL (7.2-11.1) Neutrophils (%) (Auto) 73.0 % (39.4-72.5) Lymphocytes (%) (Auto) 20.1 % (17.6-49.6) Monocytes (%) (Auto) 5.9 % (4.1-12.4) Eosinophils (%) (Auto) 0.3 % (0.4-6.7) Basophils (%) (Auto) 0.7 % (0.3-1.4) Nucleated RBC Relative Count (auto) 0.1 /100WBC Neutrophils # (Auto) 4.1 K/uL (2.0-7.4) Lymphocytes # (Auto) 1.1 K/uL (1.3-3.6) Monocytes # (Auto) 0.3 K/uL (0.3-1.0) Eosinophils # (Auto) 0.0 K/uL (0.0-0.5) Basophils # (Auto) 0.0 K/uL (0.0-0.1) Nucleated RBC Absolute Count (auto) 0.01 K/uL Glomerular Filtration Rate Calc > 60.0 Calcium Level 9.5 mg/dl (8.4-10.2) Total Bilirubin 0.6 mg/dl (0.2-1.3) Aspartate Amino Transf (AST/SGOT) 14 U/L (0-35) Alanine Aminotransferase (ALT/SGPT) 17 U/L (0-56) Alkaline Phosphatase 35 U/L (0-126) Total Protein 7.8 gm/dl (6.3-8.2) Albumin 4.6 g/dl (3.5-5.0) Lipase 84 U/L (23-300) Helicobacter pylori IgG Antibody Negative (NEGATIVE) Urinalysis Test 11/29/17 10:15 Urine Color Glo Urine Clarity Cloudy Urine pH 5.0 pH (4.8-9.5) Urine Specific [place] 1.032 Urine Protein 30 mg/dL (NEGATIVE) Urine Glucose (UA) Negative mg/dL (NEGATIVE) Urine Ketones 80 mg/dL (NEGATIVE) Urine Blood Negative (NEGATIVE) Urine Nitrite Negative (NEGATIVE) Urine Bilirubin Negative (NEGATIVE) Urine Urobilinogen 4.0 mg/dL (0.2-1.9) Urine Leukocyte Esterase Trace (NEGATIVE) Urine RBC None /HPF (0-2/HPF) Urine WBC 11 /HPF (0-5/HPF) Urine Squamous Epithelial Cells Many /LPF (</=FEW) Urine Bacteria Negative /HPF (NONE-FEW) Urine Mucus Moderate /HPF (NONE-FEW) VTE Prophylasis: Adult Deep Vein Thrombosis/Pulmonary: No Pharmacological Contraindicati: Pt at Low Risk for VTE Mechanical Contraindications: Pt at Low Risk for VTE Assessment and Plan Problems: (1) Hyperemesis gravidarum Status: Acute Assessment & Plan: Rehydration. Will add a banana bag for electrolyte and chemistry balance. Anti-emetics as needed. Continue to trial oral intake. Possibly home later tonight. MARIA STARK MD Nov 29, 2017 18:42
[2017-11-29 20:00] VITALS: BP 107/59
[2017-11-29] MEDS: ONDANSETRON 4 MG/2 ML VIAL IVP PRN (20:24)
[2017-11-29] MEDS ORDERED: NS(*) 0.9% 1000 ML BAG 1,000 ML IV PRN (22:15)
[2017-11-30] MEDS: 1: MULTIVITAMINS(*) 10 ML VIAL 10 ML, FOLIC ACID(*) 50 MG/10 ML INJ 1 MG, THIAMINE HCL( IV SCH (06:28)
[2017-11-30 07:10] VITALS: BP 117/79
[2017-11-30] MEDS ORDERED: 1: MULTIVITAMINS(*) 10 ML VIAL 10 ML, FOLIC ACID(*) 50 MG/10 ML INJ 1 MG, THIAMINE HCL( IV SCH (08:00)
[2017-11-30] MEDS: ONDANSETRON 4 MG/2 ML VIAL IVP PRN (08:07)
--- NOTE | 2017-11-30 08:49 | OB/GYN Progress Note ---
OB Subjective Progress Notes Subjective Emesis last night but not this AM. Tolerating PO fluids. Has anti-emetics at home. OB Objective Physical Exam Vital Signs Date Time Temp Pulse Resp B/P (MAP) Pulse Ox O2 Delivery O2 Flow Rate FiO2 11/30/17 07:10 98.6 79 16 117/79 (92) 97 Room Air Intake and Output 12/01/17 07:00 Output Total 300 ml Balance -300 ml Output Urine Total 300 ml General Appearance: Alert/Awake/No Acute Distress Neurological: No Gross deficits Cardiovascular: Normal Rhythm & Peripheral Pulses Respiratory: No Respiratory Distress Abdomen: Soft, Non-Tender, Non-Distended Integumentary: Skin Intact without Lesions or Rash Psychological: Alert & Oriented X3, Appropriate Mood & Affect Result Diagram: 11/29/17 1052 11/29/17 1052 Assessment and Plan HEALTH COACH Plan: Discharge Home Today Problems: (1) Hyperemesis gravidarum Status: Acute Assessment & Plan: Home today with plan to use Diclegis daily and Zofran, Phenergan or Reglan as needed in that order. MARIA STARK MD Nov 30, 2017 08:49
[2017-11-30] MEDS ORDERED: DOXY1TAB3 PO (08:51)
--- NOTE | 2017-11-30 08:52 | Short(Outpt) Discharge Summary ---
Discharge Summary Reason for Hosp/Final Diag: (1) Hyperemesis gravidarum Status: Acute Hospital Course & Plan: Home today with plan to use Diclegis daily and Zofran, Phenergan or Reglan as needed in that order. Departure Discharge to: Home, Self Care Discharge Instructions Home Meds Reported Medications Metoclopramide Hcl (REGLAN) 5 Mg Tablet, 5 MG PO 11/29/17 Promethazine HCl (Phenergan) 25 Mg Supp.rect 11/29/17 Ondansetron Hcl (ZOFRAN) 4 Mg Tablet, 4 MG PO Q12H, TAB 11/29/17 Famotidine (PEPCID) 20 Mg Tablet, 20 MG PO QDAY, #10 TAB 11/29/17 Discontinued Scripts Cephalexin 500 Mg Tab (KEFLEX 500 MG TAB) 500 Mg Tablet, 500 MG PO BID, #28 TAB Prov:KRISS MARTINO Ismael DO 11/13/17 Vit#96/Ferrous Fum/Fa ( TABLET) 1 Each Tablet, 1 EACH PO DAILY for 90 Days, TAB Prov:FLAVIA COLÓN MD 05/07/16 [Lanolin] 7 GM OINT No Conflict Check, 0 GM TP PRN Y for DISCOMFORT FOR NURSING MOTHERS, TUBE Prov:FLAVIA COLÓN MD 05/07/16 Ibuprofen (IBUPROFEN) 600 Mg Tablet, 600 MG PO Q6H Y for PAIN for 10 Days, TAB Prov:FLAVIA COLÓN MD 05/07/16 Ferrous Sulfate (FERROUS SULFATE) 325 Mg Tablet, 325 MG PO DAILY for 30 Days, TAB 2 Refills Prov:FLAVIA COLÓN MD 05/07/16 Docusate Calcium (DOCUSATE CALCIUM) 240 Mg Capsule, 240 MG PO BID for 10 Days, CAPSULE Prov:FLAVIA COLÓN MD 05/07/16 Nitrofurantoin Monohyd/M-Cryst (MACROBID 100 MG CAPSULE) 100 Mg Capsule, 100 MG PO BID, #14 CAPSULE 0 Refills Prov:ADVID BUCK MD 04/14/16 Follow up Referrals: 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
== END 2017-11-30 08:51 | disposition home or self-care (01) ==
LOC: ER 10:25 → UNDOADMOB 13:14 → INTOOBSV 13:14 → PED 13:14
PROVIDERS: ADMIT Obstetrics & Gynecology; ATTEND Obstetrics & Gynecology
DX: O21.1 Hyperemesis gravidarum with metabolic disturbance (principal); O21.0 Mild hyperemesis gravidarum; Z3A.09 9 weeks gestation of pregnancy
CPT/HCPCS: 81001; 83690; 85025; 86677; 87088; 96361; 96365; 96375; 99285; G0378; J2405; J2765; J3490; J7030; J7120; 82040; 82247; 82310; 82374; 82435; 82565; 82947; 84075; 84132; 84155; 84295; 84450; 84460; 84520